=== PATIENT | male | born 1975 | race Caucasian/White ===

== ENCOUNTER → 2018-12-08 | Outpatient (CLI) | payer OTHER, MEDICAID ==
[~2018-12-08] MED LIST: ACETAMINOPHEN-O1 TAB PO; CEFUROXIME AXE500 MG PO; CIPRO500 MG PO; COREG25 MG PO; CRESTOR10 M1 PO; Coumadin2.5 MG PO; DIGOX0.125 MG PO; FLAGYL500 MG PO; GLIPIZIDE5 MG PO; GRALISE600 M2 PO; LISINOPRIL1 GM PO; NEXIUM40 MG PO
== END | disposition home or self-care (01) ==
LOC: RAD 00:49
DX: M25.521 Pain in right elbow (principal)

== ENCOUNTER → 2020-02-02 | Outpatient (CLI) | payer OTHER, MEDICAID | END | disposition home or self-care (01) | LOC: COVID19 05:42 | PROVIDERS: ATTEND Physician Assistant Medical | DX: U07.1 COVID-19 (principal) ==